=== PATIENT | male | born 1975 | race Caucasian/White ===

== ENCOUNTER → 2017-01-03 | Outpatient (CLI) | payer SELFPAY ==
[~2017-01-03] MED LIST: ASCORBIC ACID500 MG PO; ASPIR-TRIN325 MG PO; COLACE100 MG PO; COZAAR100 MG PO; CPAP INH; CYMBALTA60 MG PO; DILAUDID2 MG PO; FLOMAX0.4 MG PO; GENTLE LAXATIVE5 M1 PO; LIPITOR40 MG PO; LOPRESSOR25 MG PO; LOVENOX40 MG/0.4 PO; LYRICA150 MG PO; LYRICA300 MG PO; MOBIC15 MG PO; NITROSTAT0.4 MG SL; NORCO 5-325 MG1 TAB; NORCO 7.5-3251 EACH PO; OXYCONTIN EXTEN10 MG PO; PERCOCET 5-3251 EACH PO; PHILLIPS'400 MG/5 M PO; PLAVIX75 MG PO; ROXICODONE 5MG (5 MG PO; TRAZODONE HCL50 MG PO; TYLENOL EXTRA500 MG PO; TYLENOL325 MG PO; UNISOM50 MG PO; VASOTEC2.5 M1 PO; VASOTEC2.5 MG PO; XARELTO10 MG PO
== END | disposition disaster alternative care site (69) ==
LOC: GRAD 15:58
DX: M79.671 Pain in right foot (principal); R60.0 Localized edema; R93.7 Abnormal findings on diagnostic imaging of other parts of musculoskeletal system

== ENCOUNTER → 2017-01-14 | Outpatient (CLI) | payer SELFPAY | END | disposition disaster alternative care site (69) | LOC: GBCOE 14:43 | DX: M81.0 Age-related osteoporosis without current pathological fracture (principal) ==